=== PATIENT | female | born 1955 | race Two or more races ===

== ENCOUNTER 2023-03-01 09:22 | Emergency (ER) | payer OTHER ==
[~2023-03-01] VITALS: Ht 162.6 cm; Wt 79.4 kg
[~2023-03-01 09:22] MED LIST: AMBIEN10 MG PO; FORTAMET1000 MG PO; JANUVIA100 MG PO; LIPITOR20 MG PO; PRILOSEC10 MG PO; SYNTHROID50 MCG PO; WELLBUTRIN XL300 MG PO; ZANTAC300 MG PO
[2023-03-01] MEDS ORDERED: JANUMET XR 1001 EACH (09:46)
[2023-03-01] MEDS ORDERED: CLONAZEPAM1 M1 (09:48)
[2023-03-01] MEDS ORDERED: JARDIANCE25 MG (09:49)
== END 2023-03-01 10:54 ==
LOC: ER 09:22
DX: H11.32 Conjunctival hemorrhage, left eye (principal); Z88.0 Allergy status to penicillin; E11.9 Type 2 diabetes mellitus without complications; Z79.84 Long term (current) use of oral hypoglycemic drugs